=== PATIENT | female | born 2000 | race Caucasian/White ===

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

== ENCOUNTER 2019-01-06 13:13 | Emergency (ER) | payer OTHER ==
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
[2019-01-06 15:06] LABS: Amphetamine Screen,Urine Not Detected (NotDetected); Barbiturate Screen,Urine Not Detected (NotDetected); Benzodiazepines Screen,Urine Not Detected (NotDetected); Cocaine Screen,Urine Not Detected (NotDetected); Methadone Screen, Urine Not Detected (NotDetected); Opiate Screen,Urine Not Detected (NotDetected); Oxycodone Screen, Urine Not Detected (NotDetected); Phencyclidine Screen,Urine Not Detected (NotDetected); Tricyclic Antidepressant,Urine Not Detected (NotDetected); Urn Cannabinoid Scrn Detected (NotDetected)
[2019-01-06 17:26] VITALS: BP 132/68; PULSE 56; RESP 16; TEMP 98
== END 2019-01-06 17:26 | disposition home or self-care (01) ==
LOC: EC 13:13
DX: F31.9 Bipolar disorder, unspecified (principal); R45.851 Suicidal ideations; F17.200 Nicotine dependence, unspecified, uncomplicated
CPT/HCPCS: 80306; 82075; 99285

== ENCOUNTER → 2019-01-07 | Outpatient (CLI) | payer OTHER ==
[2019-01-07 16:52] LABS: HCT 44.6 % (34.0-46.0); HGB 14.7 gm/dL (11.4-16.0); MCH 29.3 pg (25.0-35.0); MCHC 32.9 g/dL (31.0-37.0); MCV 89.1 fL (80.0-100.0); Mean Platelet Volume 7.9; Platelet Count 224 k/uL (150-450); RDW 13.4 % (11.5-15.5); WBC 7.9 k/uL (4.0-11.0)
[2019-01-08 01:05] LABS: African American GFR (CKD) 145.6 (60.0-200.0); Albumin 4.6 g/dL (3.80-4.90); Albumin/Globulin Ratio 1.92 (1.60-3.17); Anion Gap 11.9 mmol/L (4.00-12.00); BUN/Creat Ratio 17.14 Ratio (12.00-20.00); Calcium 9.7 mg/dL (8.7-10.3); Carbon Dioxide 23.1 mmol/L (21.6-31.8); Globulin 2.4 g/dL (1.6-3.3); Potassium 3.8 mmol/L (3.5-5.5); Total Bilirubin 0.6 mg/dL (0.3-1.2)
[2019-01-08 01:12] LABS: T4, Free (Free Thyroxine) 1.2 ng/dL (0.83-1.43)
== END | disposition home or self-care (01) ==
LOC: LABWHC1 15:42
PROVIDERS: ATTEND Clinical Nurse Specialist Psychiatric/Mental Health, Community
DX: R53.82 Chronic fatigue, unspecified (principal); F34.81 Disruptive mood dysregulation disorder
CPT/HCPCS: 36415; 80053; 82306; 84439; 84443; 84481; 85027

== ENCOUNTER → 2019-10-06 | Outpatient (CLI) | payer OTHER ==
--- NOTE | 2019-10-06 08:11 | US ---
EXAMINATION TYPE: US abdomen complete DATE OF EXAM: 10/06/2019 COMPARISON: NONE CLINICAL HISTORY: R10.9 Abdominal pain. EXAM MEASUREMENTS: Liver Length: 16.6 cm Gallbladder Wall: 0.2 cm CBD: 0.3 cm Spleen: 11.7 cm Right Kidney: 10.0 x 5.3 x 4.9 cm Left Kidney: 10.1 x 4.5 x 5.8 cm Pancreas: wnl Liver: wnl Gallbladder: wnl Evidence for sonographic Nicholson's sign: no CBD: wnl Spleen: wnl Right Kidney: wnl Left Kidney: Suboptimal visualization due to overlying bowel gas. Additional left renal lesion on im age 67/70 Upper IVC: wnl Abd Aorta: wnl The liver is homogenous. The intrahepatic portion of the IVC and proximal abdominal aorta are within normal limits. There is no evidence of cholelithiasis. Common bile duct is unremarkable. The visu alized portions of the pancreas are homogenous. The spleen is unremarkable. Kidneys are symmetric a nd free of hydronephrosis. IMPRESSION: 1. Suboptimal visualization with questionable left renal lesion. Enhanced CT abdomen is recommended f or further evaluation. 2. No sonographic evidence of cholelithiasis nor acute cholecystitis.
== END | disposition home or self-care (01) ==
LOC: RADUSWWP 07:09
PROVIDERS: ATTEND Family Medicine
DX: R10.9 Unspecified abdominal pain (principal)
CPT/HCPCS: 76700

== ENCOUNTER → 2020-01-21 | Outpatient (CLI) | payer OTHER ==
--- NOTE | 2020-01-23 20:25 | CT ---
EXAMINATION TYPE: CT abdomen w con DATE OF EXAM: 01/21/2020 COMPARISON: Ultrasound 10/06/2019 HISTORY: 19-year-old female Bilateral rib/flank pain and abnormal ultrasound. TECHNIQUE: Contiguous axial scanning of the abdomen following administration of 100 ml Isovue 300 IV contrast. Delayed images through the kidneys and coronal/sagittal reconstructions performed. CT DLP: 806 mGycm Automated exposure control for dose reduction was used. FINDINGS: Heart normal size without pericardial effusion. Lung bases clear without pleural effusion. Liver mildly enlarged at 19.0 cm. No focal liver lesion or biliary ductal dilatation. Portal venous s ystem is patent. Gallbladder, adrenal glands, spleen, and pancreas appear within normal limits. Numerous hypodense lesions throughout the bilateral kidneys measuring up to 1.5 cm, most of which are too small for accurate CT characterization and likely represent cysts. One of these lesions in the posterior mid right kidney appears complex with a multilocular cystic dylon earance measuring 2.6 x 2.5 cm. Symmetric uptake and excretion of contrast from the kidneys. No dilated small bowel, free fluid, free air. No mesenteric or retroperitoneal lymphadenopathy. Scatt ered nonenlarged mesenteric lymph nodes are present. Mild to moderate stool burden. No pericolic inflammatory change. Partially visualized IUD at the uter ine fundus of the uterus. The pelvis is not imaged. Bones: No osseous destructive process. IMPRESSION: NUMEROUS BILATERAL RENAL CORTICAL CYSTS MEASURING UP TO 1.5 CM. MANY OF THE LESIONS ARE TOO SMALL FOR ACCURATE CT CHARACTERIZATION ALSO LIKELY REPRESENT CYSTS. 2. ONE LESION IN THE MID RIGHT KIDNEY HAS A MULTILOCULAR CYSTIC APPEARANCE MEASURING 2.6 X 2.5 CM. A COMPLEX SEPTATED CYST AND MULTILOCULAR CYSTIC NEPHROMA ARE A COUPLE DIFFERENTIAL CONSIDERATIONS. SIX- MONTH FOLLOW-UP RECOMMENDED TO REASSESS. GIVEN PATIENT'S AGE, MRI CAN BE UTILIZED.
== END | disposition home or self-care (01) ==
LOC: RADCTMAIN 18:22
PROVIDERS: ATTEND Family Medicine
DX: Q61.9 Cystic kidney disease, unspecified (principal)
CPT/HCPCS: 74160; Q9967

== ENCOUNTER → 2020-07-29 | Outpatient (CLI) | payer OTHER ==
--- NOTE | 2020-07-30 00:18 | MR ---
EXAMINATION TYPE: MR kidney wo/w con DATE OF EXAM: 07/29/2020 COMPARISON: CT scan abdomen and pelvis 01/21/2020 HISTORY: Atypical renal cysts. CONTRAST: Standard multiplanar, multisequence MRI departmental protocol utilizing 9 mL intravenous Gadavist maribel olinium contrast. There are numerous bilateral renal cortical cysts that measure up to 2 cm. There is a conglomeration of cysts in the posterior lateral right kidney that measures 2.6 cm. There is no hydronephrosis. Cont rast images show no pathologic enhancement. Renal cysts have thin wall. There is no evidence of retroperitoneal adenopathy. Liver has normal size. The bile ducts are not dil ated. There is no evidence of pancreatic mass. Spleen appears normal. There is no adrenal mass. Pancr eatic duct appears normal. Gallbladder has normal size and contour. The lumbar spine is intact. The l larry bases show no evidence of pleural effusion. IMPRESSION: Multiple bilateral renal thin wall cortical cysts are not significantly different than the CT scan of 01/21/2020 no evidence of solid renal mass. No evidence of renal obstruction.
== END | disposition home or self-care (01) ==
LOC: RADMRIMAIN 10:39
PROVIDERS: ATTEND Family Medicine
DX: N28.1 Cyst of kidney, acquired (principal)
CPT/HCPCS: 74183; A9585

== ENCOUNTER 2023-10-26 06:44 | Emergency (ER) | payer OTHER ==
--- NOTE | 2023-10-26 07:17 | ED ---
URI HPI - General Chief Complaint: Upper Respiratory Infection Stated Complaint: congestion,lump on face Time Seen by Provider: 10/26/23 06:47 Source: patient Mode of arrival: ambulatory Limitations: no limitations - History of Present Illness Initial Comments: This is a 22-year-old female who presents to the emergency department for coughing, congestion, headaches, and a sore throat. Symptoms have been ongoing for about 3 weeks at this point. She initially went to urgent care and was treated with amoxicillin and steroids, however she has not had any improvement in symptoms. In the last couple of days, she started to notice a painful lump on the left side of her face. Also notes that she has been experiencing hot and cold flashes as well as problems with feeling hungry when she is not. Also reports problems with upper abdominal pain. The hot and cold flashes have been going on for couple of years, but seem to be getting worse recently. The abdominal pain is also recent in the last couple of weeks, which she states may be from all of the coughing, but is not really sure and she does report some associated nausea. MD Complaint: cough, sore throat, nasal congestion - Related Data Previous Rx's Medication Instructions Recorded Ciprofloxacin-Dexameth [Ciprodex 4 drops BOTH EARS BID 7 Days #7.5 10/26/23 Otic Susp] ml Fluticasone Nasal [place] [Flonase 2 spray EA NOSTRIL DAILY #16 gm 10/26/23 Nasal [place]] Ketorolac [Toradol] 10 mg PO Q6HR PRN #15 tab 10/26/23 Allergies Allergy/AdvReac Type Severity Reaction Status Date / Time No Known Allergies Allergy Verified 10/26/23 06:55 Review of Systems ROS Statement: Those systems with pertinent positive or pertinent negative responses have been documented in the HPI. ROS Other: All systems not noted in ROS Statement are negative. Past Medical History Past Medical History: No Reported History Additional Past Medical History / Comment(s): right foot fracture History of Any Multi-Drug Resistant Organisms: None Reported Past Surgical History: Tonsillectomy Past Psychological History: ADD/ADHD, Anxiety, Depression Smoking Status: Former smoker Past Alcohol Use History: None Reported Past Drug Use History: Marijuana General Exam Limitations: no limitations General appearance: alert, in no apparent distress Head exam: Present: atraumatic, normocephalic, other (Tender palpable lump anterior to the left ear. No overlying skin changes.) Eye exam: Present: other ENT exam: Present: other (Posterior pharyngeal erythema. Fluid behind the bi lateral TMs. No erythema.) Respiratory exam: Present: normal lung sounds bilaterally. Absent: respiratory distress, wheezes, rales, rhonchi, stridor Cardiovascular Exam: Present: regular rate, normal rhythm, normal heart sounds. Absent: systolic murmur, diastolic murmur, rubs, gallop, clicks GI/Abdominal exam: Present: soft, tenderness (Upper abdomen), normal bowel sounds. Absent: distended Neurological exam: Present: alert, oriented X3, CN II-XII intact Psychiatric exam: Present: normal affect, normal mood Skin exam: Present: warm, dry, intact, normal color. Absent: rash Course Vital Signs 10/26/23 10/26/23 06:53 10:29 Temperature 98.3 F 97.7 F Pulse Rate 58 L 56 L Respiratory 18 16 Rate Blood Pressure 149/85 124/101 O2 Sat by Pulse 100 99 Oximetry Medical Decision Making - Medical Decision Making This is a 22 year old female who presents to the emergency department for coughing, congestion, and sore throat. Was pt. sent in by a medical professional or institution? @ -No Did you speak to anyone other than the patient for history? @ -No Did you review nursing and triage notes? @ -Yes, and I agree, it is accurate with regards to the patient's symptoms. Were old charts reviewed? @ -No Differential Diagnosis? @ -Differential Cough: Influenza, Covid, RSV, croup, allergic rhinitis, GERD, pneumonia, bronchitis, COPD, viral pharyngitis, streptococcal pharyngitis, this is not meant to be an all-inclusive list. EKG interpreted by me (3pts min.)? @ -Not obtained X-rays interpreted by me (1pt min.)? @ -Chest x-ray obtained, my interpretation identifies no localized consolidations or infiltrates. CT interpreted by me (1pt min.)? @ -Not obtained U/S interpreted by me (1pt. min.)? @ -Ultrasound of the lump on her face obtained. My interpretation identifies a hypoechoic lesion. What testing was considered but not performed? (CT, X-rays, U/S, labs)? Why? @ -None What meds were considered but not given? Why? @ -None Did you discuss the management of the patient with other professionals? @ -No Did you reconcile home meds? @ -No Was smoking cessation discussed for >3mins.? @ -I discussed smoking cessation for greater than 3 minutes. The risk of smoking were discussed with the patient including but not limited to risks of cancer, stroke, coronary artery disease and COPD. Also discussed with patient were multiple methods of quitting smoking. Lastly we discussed the financial cost of smoking. Was critical care preformed (if so, how long)? @ -No Were there social determinants of health that impacted care today? How? (Homelessness, low income, unemployed, alcoholism, drug addiction, marin sportation, low edu. Level, literacy, decrease access to med. care, [facility], rehab)? @ -No Was there de-escalation of care discussed even if they declined? (Discuss DNR or withdrawal of care, Hospice)? @ -No What co-morbidities impacted this encounter? (DM, HTN, Smoking, COPD, CAD, Cancer, CVA, Hep., AIDS, mental health diagnosis, sleep apnea, morbid obesity)? @ -Smoking Was patient admitted / discharged? @ -Discharged. Lab work unremarkable. Heterophile negative. Rapid strep test negative. COVID, influenza, and RSV testing were negative. Chest x-ray reveals no acute process. Ultrasound of the lump on her face obtained. This demonstrated a hypoechoic lesion thought to be a lymph node. Physical e xamination demonstrates a bilateral serous otitis media with possible otitis externa. She is also exhibiting signs of eustachian tube dysfunction. Toradol administered for the headache and sore throat, which she found beneficial. Prescription for Flonase nasal spray, Ciprodex eardrops, and Toradol provided with dosing instructions reviewed. Otherwise advised follow-up with her primary care provider. Undiagnosed new problem with uncertain prognosis? @ -None Drug Therapy requiring intensive monitoring for toxicity (Heparin, Nitro, Insulin, Cardizem)? @ -None Were any procedures done? @ -None Diagnosis/symptom? @ -Serous otitis media, sinusitis, pharyngitis Acute, or Chronic, or Acute on Chronic? @ -Acute Uncomplicated (without systemic symptoms) or Complicated (systemic symptoms)? @ -Uncomplicated Side effects of treatment? @ -None Exacerbation, Progression, or Severe Exacerbation] @ -Not applicable Poses a threat to life or bodily function? @ -No Return precautions reviewed in depth, the patient is instructed to return to the emergency department with any new, worsening, or concerning symptoms. Patient verbalized understanding. This case was discussed in detail with the attending ED physician, Dr. Jenkins. Presentation, findings, and treatment plan discussed in detail as well. - Lab Data Result diagrams: 10/26/23 07:27 10/26/23 07:27 Lab Results 10/26/23 10/26/23 10/26/23 Range/Units 07:27 07:27 07:27 WBC 6.7 (3.8-10.6) k/uL RBC 4.94 (3.80-5.40) m/uL Hgb 14.7 (11.4-16.0) gm/dL Hct 45.0 (34.0-46.0) % MCV 91.0 (80.0-100.0) fL MCH 29.7 (25.0-35.0) pg MCHC 32.6 (31.0-37.0) g/dL RDW 12.9 (11.5-15.5) % Plt Count 223 (150-450) k/uL MPV 8.2 Neutrophils % 61 % Lymphocytes % 26 % Monocytes % 8 % Eosinophils % 2 % Basophils % 1 % Neutrophils # 4.0 (1.3-7.7) k/uL Lymphocytes # 1.7 (1.0-4.8) k/uL Monocytes # 0.5 (0-1.0) k/uL Eosinophils # 0.1 (0-0.7) k/uL Basophils # 0.1 (0-0.2) k/uL Sodium 140 (137-145) mmol/L Potassium 4.0 (3.5-5.1) mmol/L Chloride 110 H (98-107) mmol/L Carbon Dioxide 21 L (22-30) mmol/L Anion Gap 9 mmol/L BUN 12 (7-17) mg/dL Creatinine 0.50 L (0.52-1.04) mg/dL Est GFR (CKD-EPI)AfAm >90 (>60 ml/min/1.73 sqM) Est GFR (CKD-EPI)NonAf >90 (>60 ml/min/1.73 sqM) Glucose 104 H (74-99) mg/dL Plasma Lactic Acid [place] (0.7-2.0) mmol/L Calcium 9.0 (8.4-10.2) mg/dL Total Bilirubin 0.6 (0.2-1.3) mg/dL AST 29 (14-36) U/L ALT 33 (4-34) U/L Alkaline Phosphatase 62 (38-126) U/L Total Protein 6.9 (6.3-8.2) g/dL Albumin 4.0 (3.5-5.0) g/dL TSH 1.740 (0.465-4.680) mIU/L HCG, Qual Not Detected Heterophile Antibody Negative (Negative) Influenza Type A (PCR) (Not Detectd) Influenza Type B (PCR) (Not Detectd) RSV (PCR) (Not Detectd) SARS-CoV-2 (PCR) (Not Detectd) Group A Strep (PCR) (Not Detectd) 10/26/23 10/26/23 10/26/23 Range/Units 07:27 07:27 07:27 WBC (3.8-10.6) k/uL RBC (3.80-5.40) m/uL Hgb (11.4-16.0) gm/dL Hct (34.0-46.0) % MCV (80.0-100.0) fL MCH (25.0-35.0) pg MCHC (31.0-37.0) g/dL RDW (11.5-15.5) % Plt Count (150-450) k/uL MPV Neutrophils % % Lymphocytes % % Monocytes % % Eosinophils % % Basophils % % Neutrophils # (1.3-7.7) k/uL Lymphocytes # (1.0-4.8) k/uL Monocytes # (0-1.0) k/uL Eosinophils # (0-0.7) k/uL Basophils # (0-0.2) k/uL Sodium (137-145) mmol/L Potassium (3.5-5.1) mmol/L Chloride (98-107) mmol/L Carbon Dioxide (22-30) mmol/L Anion Gap mmol/L BUN (7-17) mg/dL Creatinine (0.52-1.04) mg/dL Est GFR (CKD-EPI)AfAm (>60 ml/min/1.73 sqM) Est GFR (CKD-EPI)NonAf (>60 ml/min/1.73 sqM) Glucose (74-99) mg/dL Plasma Lactic Acid [place] 1.1 (0.7-2.0) mmol/L Calcium (8.4-10.2) mg/dL Total Bilirubin (0.2-1.3) mg/dL AST (14-36) U/L ALT (4-34) U/L Alkaline Phosphatase (38-126) U/L Total Protein (6.3-8.2) g/dL Albumin (3.5-5.0) g/dL TSH (0.465-4.680) mIU/L HCG, Qual Heterophile Antibody (Negative) Influenza Type A (PCR) Not Detected (Not Detectd) Influenza Type B (PCR) Not Detected (Not Detectd) RSV (PCR) Not Detected (Not Detectd) SARS-CoV-2 (PCR) Not Detected (Not Detectd) Group A Strep (PCR) NOT DETECTED (Not Detectd) - Radiology Data Radiology results: report reviewed, image reviewed Disposition Clinical Impression: Nicotine dependence, Acute sinusitis, Serous otitis media, Pharyngitis Disposition: HOME SELF-CARE Instructions (If sedation given, give patient instructions): Sinusitis (ED), Fluid In The Ear (Serous Otitis Media) (ED) Additional Instructions: Return to the emergency department with any new, worsening, or concerning symptoms. Apply the eardrops as 4 drops to each ear twice daily for 7 days. Use the Flonase nasal spray as 2 sprays to each nostril daily for the first 5 days, followed by 1 spray in each nostril daily. Take the Toradol with Tylenol as needed for pain relief. If you choose to take the Toradol, do not take any other anti-inflammatories such as ibuprofen, take one or the other. Follow up with your primary care provider in 1-2 days. Prescriptions: Ciprofloxacin-Dexameth [Ciprodex Otic Susp] 4 drops BOTH EARS BID 7 Days #7.5 ml Fluticasone Nasal [place] [Flonase Nasal [place]] 2 spray EA NOSTRIL DAILY #16 gm Ketorolac [Toradol] 10 mg PO Q6HR PRN #15 tab PRN Reason: Sore Throat Is patient prescribed a controlled substance at d/c from ED?: No Referrals: Ludin Nash DO [Primary Care Provider] - 1-2 days Time of Disposition: 11:08
[2023-10-26] MEDS: BENZONATATE 100 MG CAP PO STA (07:28)
[2023-10-26] MEDS: SODIUM CHLORIDE 0.9% 1,000 ML IV STA (07:28)
[2023-10-26] MEDS: KETOROLAC 15 MG/ML 1 ML VIAL IVP STA (07:29)
--- NOTE | 2023-10-26 07:46 | XR ---
EXAMINATION TYPE: XR chest 2V DATE OF EXAM: 10/26/2023 COMPARISON: 09/20/2014 INDICATION: Cough TECHNIQUE: Frontal and lateral views of the chest are obtained. FINDINGS: The heart size is normal. The pulmonary vasculature is normal. The lungs are clear. IMPRESSION: 1. No acute pulmonary process.
[2023-10-26 07:53] LABS: Basophils # (A) 0.1 k/uL (0-0.2); Basophils % (A) 1 %; Eosinophils # (A) 0.1 k/uL (0-0.7); Eosinophils % (A) 2 %; HGB 14.7 gm/dL (11.4-16.0); Lymphocytes # (A) 1.7 k/uL (1.0-4.8); Lymphocytes % (A) 26 %; MCH 29.7 pg (25.0-35.0); MCHC 32.6 g/dL (31.0-37.0); Mean Platelet Volume 8.2; Monocytes # (A) 0.5 k/uL (0-1.0); Monocytes % (A) 8 %; Neutrophils % (A) 61 %; Platelet Count 223 k/uL (150-450); RBC 4.94 m/uL (3.80-5.40); RDW 12.9 % (11.5-15.5); WBC 6.7 k/uL (3.8-10.6)
[2023-10-26 08:42] LABS: HCG,Qualitative Serum Not Detected
[2023-10-26 08:50] LABS: ALT 33 U/L (4-34); AST 29 U/L (14-36); African American GFR (CKD) >90 (>60 ml/min/1.73 sqM); Alkaline Phosphatase 62 U/L (38-126); Anion Gap 9 mmol/L; Blood Urea Nitrogen 12 mg/dL (7-17); Carbon Dioxide 21 mmol/L (22-30); Chloride 110 mmol/L (98-107); Glucose 104 mg/dL (74-99); Non-African American GFR(CKD) >90 (>60 ml/min/1.73 sqM); Sodium 140 mmol/L (137-145); Total Bilirubin 0.6 mg/dL (0.2-1.3); Total Protein 6.9 g/dL (6.3-8.2)
--- NOTE | 2023-10-26 08:55 | US ---
EXAMINATION TYPE: US thyroid st tissue head/neck DATE OF EXAM: 10/26/2023 COMPARISON: NONE CLINICAL INDICATION: Female, 22 years old with history of Lump on left side of face; upper respirator y infection x 3 weeks, left parotid region small hard palp x 2 days, decreased in size Several images taken at patients area of concern: There is a 0.9x0.9x1.2cm probable lymph node noted at patients palpable area of concern exhibiting hi lar flow IMPRESSION: Area left prominent Hypoechoic lesion at the palpable may be a lymph node.
[2023-10-26 10:44] VITALS: BP 124/101; PULSE 56; RESP 16; TEMP 97.7
[2023-10-26] MEDS: DEXAMETHASONE SOD PHOSPHATE 10 MG/ML 1 ML VIAL IVP STA (11:19)
== END 2023-10-26 11:24 | disposition home or self-care (01) ==
LOC: EC 06:44
DX: F17.200 Nicotine dependence, unspecified, uncomplicated (principal); J01.90 Acute sinusitis, unspecified; H65.92 Unspecified nonsuppurative otitis media, left ear; J02.9 Acute pharyngitis, unspecified; F12.90 Cannabis use, unspecified, uncomplicated
CPT/HCPCS: 36415; 71046; 76536; 80053; 83605; 84443; 84703; 85025; 86308; 87636; 87651; 96361; 96374; 96375; 99284; 99406